=== PATIENT | male | born 1990 | race Caucasian/White ===

== ENCOUNTER 2020-01-17 23:43 | Emergency (ER) | payer OTHER, SELFPAY ==
[2020-01-17 23:43] VITALS: BP 153/103; PULSE 103; RESP 20; TEMP 37.6; O2SAT 100
[2020-01-18 00:18] LABS: Basophils Absolute Auto 0.02 K/mm3 (0.00-0.10); Basophils Percent Auto 0.2 % (0.0-1.0); Eosinophils Percent Auto 1.1 % (1.0-6.0); Hematocrit 46.7 % (40.0-54.0); Hemoglobin 15.9 g/dL (14.0-18.0); Immature Granulocyte Absolute 0.02 K/mm3 (0.00-0.00); Immature Granulocyte Percent A 0.2 % (0.0-0.0); Lymphocytes Absolute Auto 2.27 K/mm3 (1.10-4.50); Lymphocytes Percent Auto 25.6 % (18.0-42.0); Mean Corpuscular Hemoglobin 32.2 pg (27.0-31.0); Mean Corpuscular Volume 94.5 fL (78.0-102.0); Mean Platelet Volume 10.8 fl (8.7-11.0); Monocytes Absolute Auto 0.73 K/mm3 (0.10-0.90); Monocytes Percent Auto 8.2 % (2.0-11.0); Neutrophils Absolute Auto 5.7 K/mm3 (1.7-7.2); Neutrophils Percent Auto 64.7 % (50.0-70.0); Platelet Count Result 294 K/mm3 (150-420); Red Blood Count 4.94 M/mm3 (4.70-6.10); Red Cell Distribution Width 11.7 % (11.6-14.4); White Blood Count 8.9 K/mm3 (4.8-10.8)
[2020-01-18 00:20] LABS: Add Urine Microscopic? YES; Appearance Urine Clear (Clear); Bilirubin Urine Negative (Negative); Blood Urine Negative (Negative); Color Urine Yellow (Yellow); Glucose Urine UA Negative (Negative); Ketones Urine Negative (Negative); Leukocyte Esterase Ur 1+ LEU/UL (Negative); Nitrate Urine Negative (Negative); Protein Urine Negative (Negative); Urobilinogen Urine 0.2 mg/dL (0.2-1.0); pH Urine 7.5 (5.0-8.0)
[2020-01-18 00:27] LABS: Amphetamine Screen Urine Positive (Negative); Barbiturate Screen Urine Negative (Negative); Benzodiazepines Screen Urine Negative (Negative); Cannabinoid Screen Urine Negative (Negative); Cocaine Screen Urine Negative (Negative); Methadone Screen Urine Negative (Negative); Opiate Screen Urine Negative (Negative); Phencyclidine Screen Urine Negative (Negative)
[2020-01-18 00:32] LABS: Bacteria Urine None seen /hpf; RBC Urine 0-2 /hpf (0-2); Renal Epithelial Cells Urine Occasional /hpf; Squamous Epithelial Cell Urine None seen /hpf (Few)
[2020-01-18 00:43] LABS: Alanine Aminotransferase 11 U/L (16-63); Albumin Level 4.4 g/dL (3.4-5.0); Alkaline Phosphatase 65 U/L (46-116); Anion Gap 8 mmol/L (8-16); Aspartate Amino Transferase 11 U/L (15-37); Bilirubin,Total 0.3 mg/dL (0.00-1.00); Blood Urea Nitrogen 4 mg/dL (7-18); Calcium 9.3 mg/dL (8.5-10.1); Carbon Dioxide 33 mmol/L (21-32); Chloride 101 mmol/L (98-108); Estimated Glomerular Filt Rate > 60; Ethanol 3 mg/dL (0-6); Glucose 85 mg/dL (70-99); Osmolality Calculated 289 mOsm/kg (285-295); Potassium 3.3 mmol/L (3.5-5.1); Salicylate 3.2 mg/dL (2.8-20.0); Sodium 142 mmol/L (136-145); Thyroid Stimulating Hormone 0.68 uIU/mL (0.36-3.74); Total Protein 8.5 g/dL (6.4-8.2)
[2020-01-18 00:45] LABS: Acetaminophen 0 ug/mL (10-30)
[2020-01-18 00:50] VITALS: BP 141/106
--- NOTE | 2020-01-18 01:18 | PC.NURSE ---
pt ate 100 % meal and drink provided. watching tv. awaiting jesu chadwick.
[2020-01-18 01:23] VITALS: BP 141/105
--- NOTE | 2020-01-18 01:33 | PC.NURSE ---
pt does not want mother here or in room. per mom, vy, pt has made threats to harm self in the past. no attempts and she is aware of. states pt is to be evicted from home soon.
--- NOTE | 2020-01-18 01:36 | ED.PSYCH ---
HPI - Psych General Chief Complaint: Psychiatric Symptoms Stated Complaint: Pysch Eval Source: patient and RN notes reviewed Mode of arrival: ambulatory Limitations: no limitations History of Present Illness HPI Narrative: patient apparently sent a text to his mother that he wanted to hang himself. So mom called and had him brought in. he said he did not mean it he was only joking. Has history of threats like this in the past. Never taken any action on his threats. complaint: suicidal ideation Onset (ago): day(s) (1) Duration: constant History of same: Yes Relieving factors: none Exacerbating factors: none Context: recent drug abuse and significant life stressor Associated psychiatric symptoms: depression and suicidal ideation Associated symptoms: denies other symptoms Treatments prior to arrival: none If self harm: admits thoughts of self harm Related Data Home Medications Medication Instructions Recorded Confirmed No Home Medications 01/18/20 01/18/20 Allergies Allergy/AdvReac Type Severity Reaction Status Date / Time No Known Allergies Allergy Verified 01/18/20 00:03 Review of Systems Review of Systems: All systems reviewed & are unremarkable except as noted in HPI and below PMFSH Past Medical History Medical History (Updated 01/18/20 @ 01:46 by Ehsan Chakraborty MD) Depression Surgical History Surgical History (Updated 01/18/20 @ 01:38 by Ehsan Chakraborty MD) H/O release of tendon Social History Social History (Updated 01/18/20 @ 01:39 by Ehsan Chakraborty MD) Smoking status: Current every day smoker Tobacco type: cigarettes Alcohol intake: current Substance use: current Substance use type: methamphetamine Exam Const: General: healthy appearing and no acute distress Nutritional Appearance: well nourished Orientation/consciousness: patient oriented x3 HENMT: Head: normal to inspection Ears: external ears normal General nose exam: Normal external nose present Face and sinus: normal facial exam Mouth: Yes Normal oral and palatal mucosa present Eyes: Conjunctivae: conjunctivae normal Pupils: Equal, round and reactive pupils present EOM: EOMs intact bilaterally Neck: Neck: normal visual inspection Chest: Chest palpation & inspection: normal inspection of the chest Resp: Effort & Inspection: normal respiratory effort Auscultation: clear to auscultation bilaterally Cardio: Rate: regular rate Rhythm: regular rhythm GI: GI Palp: Yes Soft to palpation Auscultation: normal bowel sounds Back/Spine/Pelvis: Cervical Spine: cervical ROM normal Thoracic/Lumbar Spine: thoraco-lumbar ROM normal Skin: General skin exam: normal color Rashes: no rashes Neuro: General: patient oriented x3, moves all extremities and no focal motor deficits Speech: normal speech Gait exam (Neuro): Normal gait present Extrem: General: normal to inspection and no clubbing, cyanosis or edema Psych: Appearance: grossly normal and well kempt Affect: Indifferent affect present and Blunted affect present Attitude: cooperative Thought process: Normal thought process present Thought content: Yes Normal thought content present Insight: Good insight present (Psych) Judgement: Good judgement present (Psych) Course Course Emergency Course: Patient became combative. Please set up a call. He is finally put into restraints in order to keep him at the hospital. At this point he is calm cooperative. Vital Signs Vital signs: Vital Signs Temperature 37.6 C 01/17/20 23:43 Pulse Rate 103 H 01/17/20 23:43 Respiratory Rate 20 01/17/20 23:43 Blood Pressure 153/103 H 01/17/20 23:43 Pulse Oximetry 100 01/17/20 23:43 Temperature 37.4 C 01/18/20 05:54 Pulse Rate 107 H 01/18/20 04:20 Respiratory Rate 20 01/18/20 04:20 Blood Pressure 148/98 H 01/18/20 04:20 Pulse Oximetry 98 01/18/20 04:20 MDM - Psych Lab Data Attestation: I reviewed the patient's lab results. Resu
--- NOTE | 2020-01-18 02:15 | PC.NURSE ---
jesu in with ptBrigida
--- NOTE | 2020-01-18 03:18 | PC.NURSE ---
jesu attempting to find placement. mother signd involuntary forms. pt cooperative with assessment.
--- NOTE | 2020-01-18 03:59 | PC.NURSE ---
pt resting eyes closed. jesu continues to attempt placement.
--- NOTE | 2020-01-18 04:17 | PC.NURSE ---
chelo from [facility] called to speak with pt, pt hung up on chelo and stated im not going to no in patient, i will fight the whole way. jesu spoke to chelo. pt yelling im going to walk the f--- out of here .
[2020-01-18 04:20] VITALS: BP 148/98; PULSE 107; RESP 20; TEMP 37.4; O2SAT 98
--- NOTE | 2020-01-18 04:24 | PC.NURSE ---
pt at the door of room1, wanting to go outside to smoke , explained smoke free facility. explained if he attempts to leave i will need to call the police. pt states go ahead and call them , then i can go to skilled nursing. explained to pt that is not what will happen. pt ripped off paper shirt. laying per cot with pants on. i will lose everything, my house , then i will be suicidal, i will have no where to go . jesu aware of behavior.
--- NOTE | 2020-01-18 04:45 | PC.NURSE ---
pt offered drink , refused. continues to want to go outside to smoke. offered nicotine patch. pt refused.
--- NOTE | 2020-01-18 05:17 | PC.NURSE ---
pt left room leaving facility, [place] police called. pt sitting outside on bench. RN outside with pt. officer arrives. talking with pt. [id number] pt back to room with officer, attempting to call mom. pt yelling at the phone and slammed down. pt attempting to leave room again. officer redirected back to room. pt talking with officer.
--- NOTE | 2020-01-18 05:23 | PC.NURSE ---
pt agrees to stay for 1 hour. officer juan rose leaving at this time. pt laying on cot.
--- NOTE | 2020-01-18 05:39 | PC.NURSE ---
pt remains laying on cot. awaiting acceptance from [facility].
[2020-01-18 05:54] VITALS: TEMP 37.4
--- NOTE | 2020-01-18 05:57 | PC.NURSE ---
0550 PT LEFT FACILITY AGAIN, [place] [employer] CALLED FOR ASSISTANCE. PT WALKING DOWN RT 4 , IN PAPER PANTS AND SOCKS. CALL ALSO MADE TO [facility].
--- NOTE | 2020-01-18 06:03 | PC.NURSE ---
OFFICERS SEAN AND OFFICER APURVA ARRIVES, EXPLAINED PT LEFT FACILITY AND DEPARTED WALKING DOWN RT 4. EXPLAINED PT IS INVOLUNTARY STATUS PSYCH HOLD AWAITING TRANSPORT. OFFICERS DEPARTED FACILITY TO LOOK FOR PATIENT.
--- NOTE | 2020-01-18 06:12 | PC.NURSE ---
POLICE RETURN WITH PT. ERP NOTIFIED. ERP STATED TO HAVE POLICE ASSIST WITH RESTRAINTS.
--- NOTE | 2020-01-18 06:29 | PC.NURSE ---
0615 SOFT VELCO RESTRAINTS APPLIED TO ALL 4 EXTREMITIES. PT COOPERATIVE WITH APPLICATION. SEE FLOWSHEETS.
--- NOTE | 2020-01-18 07:03 | PC.NURSE ---
PT RESTING EYES CLOSED, [facility] CALLED FOR TRANSPORT TO [facility]. PT EASILY RESPONDS TO THIS INTERACTIVE MEDIA SPECIALIST. PULSES PRESENT AND WNL TO ALL 4 EXTREMITIES, PT ABLE TO MOVE ALL EXTREMITIES. PT DECLINED ANY NEEDS AT THIS TIME. PT COOPERATIVE. EXPLAINED TO PT WOULD NEED TO BE RESTRAINED FOR TRANSPORT TO [facility]. VOICED UNDERSTANDING.
--- NOTE | 2020-01-18 07:24 | PC.NURSE ---
0716 [facility] REPORT TO [facility], SEE HARD COPY RESTAINT FLOWSHEET
[2020-01-18 23:09] LABS: SARS-CoV-2 RNA PCR Negative
== END 2020-01-18 07:25 ==
PROVIDERS: Emergency Provider Emergency Medicine
DX: F33.1 Major depressive disorder, recurrent, moderate (principal)
CPT/HCPCS: 36415; 80053; 80307; 81001; 84443; 85025; 87086; 87088; 87635; 99285; C9803; U0003

== ENCOUNTER 2021-10-05 20:13 | Emergency (ER) | payer OTHER, SELFPAY ==
--- NOTE | 2021-10-05 20:28 | ED.ALLEREA ---
HPI - Allergic Reaction General Chief complaint: Allergic Reaction Stated complaint: L hand sting Time Seen by Provider: 10/05/21 20:29 History of Present Illness HPI narrative: 31-year-old male patient is here with complaints of swelling and redness of the left hand which got stung by wasps yesterday. The patient did not have any immediate reaction at the time however today he has noticed some swelling redness and a little bit of tingling in the hand. He denies any swelling of throat or any difficulty breathing. Denies any wheezing or cough. Denies any known allergies to wasps. States has been stung in the past but has not had similar reaction. Patient takes no routine medications. He reports no known allergies. Denies COVID exposure. Denies COVID vaccination. Related Data Allergies Allergy/AdvReac Type Severity Reaction Status Date / Time No Known Allergies Allergy Verified 10/05/21 20:28 Review of Systems Review of Systems: All systems reviewed & are unremarkable except as noted in HPI and below Eyes: Eyes: Reports no additional eye complaints ENT: Reports system reviewed and no additional complaints, except as documented Cardiovascular: Cardiovascular: Reports no additional cardiovascular complaints Respiratory: Respiratory: Reports no additional respiratory complaints Gastrointestinal: Gastrointestinal: Reports no additional gastrointestinal complaints Genitourinary: Genitourinary: Reports no additional male genitourinary complaints Musculoskeletal: Musculoskeletal: Reports no additional musculoskeletal complaints Integumentary/Breasts: Skin/Breast: Reports system reviewed and no additional complaints, except as docu Neurologic: Reports system reviewed and no additional complaints, except as documented Psychiatric: Psychiatric: Reports no additional psychiatric complaints Endocrine: Endocrine: Reports no additional endocrine complaints Hematologic/Lymphatic: Hematologic/Lymphatic: Reports no additional hematologic/lymphatic complaints Allergic/Immunologic: Allergic/Immunologic: Reports no additional allergic/immunologic complaints [facility] Past Medical History Medical History Depression Surgical History Surgical History H/O release of tendon Social History Social History Smoking status: Current every day smoker Tobacco type: cigarettes Alcohol intake: current Substance use: current Substance use type: methamphetamine Exam Narrative: Alert male patient in no acute distress. Stable vital signs HEENT: normocephalic. Pupils midsize equal and reactive bilaterally. Clear. The nose throat are normal. Uvula is midline. Neck is supple. Chest wall is nontender. Breath sounds are audible bilaterally. There is no wheezing or retractions noted. Heart tones are regular. Abdomen is benign. Left hand has some scattered swelling over the dorsum mostly over the knuckles more towards the ulnar side. There is also some erythema and a full flexion of the digitsis slightly restricted because of the swelling of dorsum of the hand. On the palmar surface there is no significant erythema or swelling. Sensations are intact. The rest of the extremities are within normal limits. Neurologic examination is grossly normal. Mood and affect are normal. Course Course Emergency Course: Patient has been reassured about the delayed allergic reaction to wasps stings. We will go ahead and treat him with dexamethasone and Benadryl and he will be sent home on a prednisone Dosepak. He is advised to follow-up with his primary care provider in the next 3-4 days. Discharge Plan Discharge Clinical Impression: Allergic reaction to wasp sting Patient Disposition: Home, Self-Care Condition: Stable Instructions: Acute Rash (ED), Al
[2021-10-05 20:29] VITALS: BP 135/95; PULSE 95; RESP 17; TEMP 36.4; O2SAT 100
[2021-10-05] MEDS: diphenhydrAMINE HCl CAP 25 MG CAPSULE PO (20:39)
[2021-10-05 21:16] VITALS: BP 131/99; PULSE 81; RESP 16; TEMP 36.4; O2SAT 100
== END 2021-10-05 21:45 | disposition home or self-care (01) ==
PROVIDERS: Emergency Provider Emergency Medicine
DX: T63.461A Toxic effect of venom of wasps, accidental (unintentional), initial encounter (principal)
CPT/HCPCS: 96372; 99283; A9270; J1100